=== PATIENT | male | born 1940 | race Caucasian/White ===

== ENCOUNTER 2018-10-18 14:31 | Inpatient (IN) ==
[2018-10-18] MEDS ORDERED: Ketorolac 30 MG/ML VIAL IVP ONE (15:09)
[2018-10-18] MEDS ORDERED: 0.9 % Sodium Chloride 500 ML IVC ONE (15:09)
[2018-10-18] MEDS ORDERED: Ondansetron ODT 4 MG TAB.RAPDIS SL STA (15:09)
--- NOTE | 2018-10-18 15:12 | Emergency Department Note ---
Disposition Clinical Impression: Supratherapeutic INR Pneumonia Qualifiers: Pneumonia type: due to unspecified organism Laterality: right Lung location: middle lobe of lung Qualified Code(s): J18.1 - Lobar pneumonia, unspecified organism Disposition: Home, Self-Care Condition: Fair General Adult HPI - General Chief complaint: ED General Medical Stated complaint: VOMITING AND DIARRHEA, BACK PAIN, LT LEG PAIN Time Seen by Provider: 10/18/18 14:45 Source: patient, EMS Mode of arrival: private vehicle Limitations: no limitations Nursing Notes Reviewed: Yes Vital Signs Reviewed: Yes - History of Present Illness HPI Narrative: Patient resents to the ED via EMS complaining of back pain, leg pain, nausea, vomiting and diarrhea. Symptoms began earlier today. He complains of sharp co nstant pain in the right side of his mid upper back that wraps around into the front of his chest. He rates it a 9-1/2 out of 10. He also complains of sharp pain in his left thigh that is intermittent that he rates a 5 1/2. Neither pain radiates. There is no numbness, tingling or weakness in his leg. No recent injury. He has been nauseous but has only been dry heaving without actually bringing up any emesis. He has had several loose watery stools today with no blood noted. He denies any abdominal pain. No urinary symptoms. No chest pain or shortness of breath. He has had subjective fever and chills. History is notable for A. fib, PE and DVT, COPD and hypertension. Versed 2 L of oxygen at home as needed for over the past 10 years due to his COPD. He also wears CPAP at night for sleep apnea. 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 He just saw his oncologist and had a treatment yesterday. He has a port in the right chest. He is on Coumadin for PE and DVT was diagnosed in 2017. He states he had similar pain in his leg when he had that blood clot. He last had his INR checked on 10/15 and states it was 2.8. Family states his doctor only wants his INR to be 2. He states he was told to "eat a salad". Pain Scale: 9 - Related Data Home Medications Medication Instructions Recorded Confirmed Tramadol HCl [Ultram] 50 mg PO TID PRN 11/25/17 10/18/18 Zolpidem [Ambien] 10 mg PO HS 11/25/17 10/18/18 Albuterol Sulfate [Albuterol 1 - 2 puff IH Q6HR PRN 05/20/18 10/18/18 Inhaler] Cyanocobalamin (B-12) [Vitamin B12] 1 ml IM QMONTH 05/20/18 10/18/18 Oxybutynin Chloride [Ditropan Xl] 5 mg PO BID 05/20/18 10/18/18 Potassium Chloride [Klor-Con] 20 meq PO BID 05/20/18 10/18/18 Ropinirole HCl [Requip] 2 mg PO HS 05/20/18 10/18/18 Warfarin [Coumadin] 5 mg PO AD 05/20/18 10/18/18 Cholecalciferol (Vitamin D3) 50,000 unit PO QWEEK 07/03/18 10/18/18 [Vitamin D] Furosemide [Lasix] 20 mg PO AD PRN 10/18/18 10/18/18 Previous Rx's Medication Instructions Recorded Polyethylene Glycol 3350 [MiraLAX] 17 gm PO DAILY PRN #1 bottle 08/08/18 Allergies Allergy/AdvReac Type Severity Reaction Status Date / Time latex Allergy Rash Verified 10/17/18 09:55 Constitutional: Reports: fever (subjective), chills. Denies: weakness, weight change Eyes: Denies: eye pain, eye discharge, vision change ENT ED: Denies: ear pain, throat pain, dental pain, hearing loss, epistaxis, congestion, dysphagia Cardiovascular: Denies: chest pain, palpitations, dyspnea on exertion, edema, syncope Respiratory: Denies: cough, dyspnea, wheezes, hemoptysis, stridor Gastrointestinal: Reports: nausea, vomiting, diarrhea. Denies: abdominal pain, constipation, hematemesis, melena, hematochezia Genitourinary: Denies: urgency, dysuria, frequency, hematuria Musculoskeletal: Reports: back pain (right mid back), arthralgia (L thigh). Denies: neck pain, myalgia Integumentary: Denies: rash, abrasion, lesions Neurological: Denies: headache, weakness, numbness, paresthesias, confusion, abnormal gait, vertigo Psychiatric: Denies: anxiety, depression, suicidal thoughts, homicidal thoughts, auditory hallucinations, visual hallucinations Endocrine: Denies: fatigue Hematological/Lymphatic: Denies: easy bleeding, easy bruising Allergic/Immunologic: Denies: facial swelling, urticaria Past Medical History - Past Medical History Medical history: Reports: arthritis, atrial fibrillation, cancer, COPD, DVT, hypertension, pulmonary embolus, other Surgical history: Reports: cholecystectomy, herniorrhaphy Psychiatric history: Reports: no psych history - Social History Smoking Status: Former smoker Smokeless Tobacco Status: No Alcohol use: Reports: none Drug use: Reports: none Physical Exam - General Limitations: no limitations General appearance: alert, in no apparent distress - Head Head exam: atraumatic, normocephalic, normal inspection - Eye Eye exam: Present: normal appearance, PERRL, EOMI - ENT ENT exam: normal exam, normal oropharynx, mucous membranes moist - Neck Neck exam: Present: normal inspection, full ROM, trachea midline - Chest Chest inspection: Present: normal inspection, symmetric chest wall rise. Absent: tenderness - Respiratory Respiratory exam: Present: normal lung sounds bilaterally - Cardiovascular Cardiovascular exam: Present: regular rate, normal rhythm, normal heart sounds - Abdominal Exam Abdominal exam: Present: soft, Non-Tender, normal bowel sounds. Absent: tenderness, distention, guarding, rebound, rigidity - Extremities Exam Extremities exam: Present: normal inspection, full ROM, normal capillary refill. Absent: tenderness, pedal edema - Expanded Lower Extremity Exam Hip/Pelvis exam: Present: normal inspection, full ROM Upper leg exam: Present: normal inspection, full ROM Knee exam: Present: normal inspection, full ROM Lower leg exam: Present: normal inspection, full ROM Ankle exam: Present: normal inspection, full ROM Foot/toe exam: Present: normal inspection, full ROM Neurovascular/Tendon exam: Absent: motor deficit, sensory deficit, tendon deficit - Back Exam Back exam: Present: normal inspection, full ROM. Absent: tenderness, CVA tenderness (R), CVA tenderness (L), paraspinal tenderness, vertebral tenderness - Neurological Exam Neurological exam: Present: alert, oriented X3 - Psychiatric Psychiatric exam: Present: normal affect, normal mood - Skin Skin exam: Present: warm, dry, intact, normal color Course Course Narrative: Patient presents to the ED complaining of right mid back pain, left thigh pain as well as nausea, vomiting and diarrhea. On arrival he does have a low-grade fever on this tachycardic. EKG showing A. fib which is known in this patient. He is on Coumadin but not on any antiarrhythmics. He is hemodynamically stable otherwise and not in any distress. He has no obvious physical findings or tenderness related to his right mid back pain or the left thigh. Oxygen saturations however in the lower 90s on his usual oxygen. Will check lab work including INR as well as chest x-ray for further evaluation of possibility of infection. Low suspicion for PE or DVT given that he is on Coumadin. - Reevaluation(s) Reevaluation #1: X-ray shows opacification right mid lung concerning for pneumonia. He has a leukocytosis with left shift. He is supratherapeutic with an INR of 4.5. He has chronic kidney disease. Urinalysis is negative for signs of infection. Lactic acid is normal. Will obtain blood cultures and start antibiotics for his pneumonia. Discussed with patient family the need for admission for further treatment and they are in agreement. I spoke to the hospitalist, Dr. Hernandez who has agreed to accept the patient. Vital Signs Temperature 100.4 F H 10/18/18 14:34 Pulse Rate 142 10/18/18 14:34 Respiratory Rate 20 10/18/18 14:34 Blood Pressure 132/96 10/18/18 14:34 O2 Sat by Pulse Oximetry 91 10/18/18 14:34 Temperature 99.0 F 10/18/18 19:42 Pulse Rate 105 10/18/18 19:42 Respiratory Rate 24 10/18/18 19:42 Blood Pressure 118/59 10/18/18 19:42 O2 Sat by Pulse Oximetry 95 10/18/18 19:42 Oxygen Delivery Oxygen Delivery Nasal Cannula Medical Decision Making - Medical Records Medical records reviewed: Yes I reviewed the patient's medical records. - Lab Data Lab results reviewed: Yes I reviewed the patient's lab results. Result diagrams: 10/18/18 15:21 10/18/18 15:21 Lab Results 10/18/18 10/18/18 10/18/18 Range/Units 15:21 15:21 15:21 WBC 15.9 H D (4.3-11.1) K/mcL RBC 3.96 L (4.19-5.50) M/mcL Hgb 11.9 L (12.9-16.9) g/dL Hct 36.5 L (37.5-50.1) % MCV 92.2 (83.0-100.0) fL MCH 30.1 (28.0-33.3) pg MCHC 32.6 (31.6-35.5) g/dL RDW 15.9 H (11.5-14.5) % Plt Count 183 (140-400) K/mcL MPV 10.1 (9.4-12.4) fL Immature Gran % 0.4 (0-4) % Seg Neutrophils % 92.1 % Lymphocytes % 3.1 % Monocytes % 4.2 % Eosinophils % 0.1 % Basophils % 0.1 % Neutrophils # 14.6 H (1.6-8.9) K/mcL Lymphocytes # 0.5 L (0.6-4.6) K/mcL Monocytes # 0.7 (0.0-1.3) K/mcL Eosinophils # 0.0 (0.0-0.6) K/mcL Basophils # 0.0 (0.0-0.2) K/mcL PT 51.0 H* (9.4-12.1) Seconds INR 4.5 H* Sodium 143 (136-145) mEq/L Potassium 3.5 (3.5-5.1) mEq/L Chloride 109 H (98-107) mEq/L Carbon Dioxide 24 (23-29) mEq/L BUN 17 (8-23) mg/dL Creatinine 1.82 H (0.70-1.30) mg/dL Est GFR ( Amer) 44 L (> 60) Est GFR (Non-Af Amer) 36 L (> 60) BUN/Creatinine Ratio 9 (6-26) Glucose 192 H (70-105) mg/dL Calculated Osmolality 303 H (280-300) Lactic Acid (0.5-2.2) mmol/L Calcium 6.8 L (8.6-10.3) mg/dL Total Bilirubin 0.4 (0.3-1.0) mg/dL Direct Bilirubin 0.1 (0.0-0.2) mg/dL Indirect Bilirubin 0.3 (0.0-1.2) mg/dL AST 10 L (13-39) Units/L ALT 11 (7-52) Units/L Alkaline Phosphatase 55 (34-104) Units/L Troponin I < 0.03 (< 0.04) ng/mL B-Natriuretic Peptide (Less than 100) pg/mL Serum Total Protein 6.4 (6.4-8.9) g/dL Albumin 4.0 (3.5-5.7) g/dL Globulin 2.4 (2.4-3.5) g/dL Albumin/Globulin Ratio 1.7 (1.1-2.2) Lipase 26 (11-82) Units/L Urine Color (Yellow) Urine Clarity (Clear) Urine pH (5.0-8.0) pH Units Ur Specific [place] (1.010-1.025) Urine Protein (Neg-Trace) mg/dL Urine Glucose (UA) (Normal) mg/dL Urine Ketones (Negative) mg/dL Urine Blood (Negative) Urine Nitrite (Negative) Urine Bilirubin (Negative) Urine Urobilinogen (Normal) mg/dL Ur Leukocyte Esterase (Negative) Urine Microscopic RBC (0-3) per hpf Urine Microscopic WBC (0-3) per hpf Ur Squamous Epith Cells (None-Few) per lpf Urine Bacteria (None-Few) per hpf Ur Culture Indicated? (NO) 10/18/18 10/18/18 10/18/18 Range/Units 15:21 15:45 17:18 WBC (4.3-11.1) K/mcL RBC (4.19-5.50) M/mcL Hgb (12.9-16.9) g/dL Hct (37.5-50.1) % MCV (83.0-100.0) fL MCH (28.0-33.3) pg MCHC (31.6-35.5) g/dL RDW (11.5-14.5) % Plt Count (140-400) K/mcL MPV (9.4-12.4) fL Immature Gran % (0-4) % Seg Neutrophils % % Lymphocytes % % Monocytes % % Eosinophils % % Basophils % % Neutrophils # (1.6-8.9) K/mcL Lymphocytes # (0.6-4.6) K/mcL Monocytes # (0.0-1.3) K/mcL Eosinophils # (0.0-0.6) K/mcL Basophils # (0.0-0.2) K/mcL PT (9.4-12.1) Seconds INR Sodium (136-145) mEq/L Potassium (3.5-5.1) mEq/L Chloride (98-107) mEq/L Carbon Dioxide (23-29) mEq/L BUN (8-23) mg/dL Creatinine (0.70-1.30) mg/dL Est GFR ( Amer) (> 60) Est GFR (Non-Af Amer) (> 60) BUN/Creatinine Ratio (6-26) Glucose (70-105) mg/dL Calculated Osmolality (280-300) Lactic Acid 1.6 (0.5-2.2) mmol/L Calcium (8.6-10.3) mg/dL Total Bilirubin (0.3-1.0) mg/dL Direct Bilirubin (0.0-0.2) mg/dL Indirect Bilirubin (0.0-1.2) mg/dL AST (13-39) Units/L ALT (7-52) Units/L Alkaline Phosphatase (34-104) Units/L Troponin I (< 0.04) ng/mL B-Natriuretic Peptide 190 H (Less than 100) pg/mL Serum Total Protein (6.4-8.9) g/dL Albumin (3.5-5.7) g/dL Globulin (2.4-3.5) g/dL Albumin/Globulin Ratio (1.1-2.2) Lipase (11-82) Units/L Urine Color Yellow (Yellow) Urine Clarity Clear (Clear) Urine pH 5.0 (5.0-8.0) pH Units Ur Specific [place] 1.020 (1.010-1.025) Urine Protein 30 H (Neg-Trace) mg/dL Urine Glucose (UA) Normal (Normal) mg/dL Urine Ketones Negative (Negative) mg/dL Urine Blood Trace-lysed H (Negative) Urine Nitrite Negative (Negative) Urine Bilirubin Negative (Negative) Urine Urobilinogen Normal (Normal) mg/dL Ur Leukocyte Esterase Negative (Negative) Urine Microscopic RBC 0-3 (0-3) per hpf Urine Microscopic WBC 0-3 (0-3) per hpf Ur Squamous Epith Cells Few (None-Few) per lpf Urine Bacteria Few (None-Few) per hpf Ur Culture Indicated? NO (NO) - Radiology Data Radiology results reviewed: Yes I reviewed the patient's radiology results. ITS Impressions Chest X-Ray 10/18/18 15:08 IMPRESSION: 1. Development of patchy opacification within the right mid lung. 2. Right chest port appears unchanged in position. D/ / Rakan Ward MD / Rakan Ward MD Interpreting Provider: Rakan Ward MD - EKG Data EKG #1 EKG attestation: Yes I reviewed and interpreted this EKG. Rate: tachycardia Rhythm: A.Fib [place]/QRS: normal Interpretation: unchanged when compared to prior tracing (date) (09/29/18)
[2018-10-18 15:36] LABS: Basophils % 0.1 %; Eosinophils % 0.1 %; Hematocrit 36.5 % (37.5-50.1); Hemoglobin 11.9 g/dL (12.9-16.9); Immature Granulocytes % 0.4 % (0-4); Lymphocytes # 0.5 K/mcL (0.6-4.6); Lymphocytes % 3.1 %; Mean Corpuscular HGB Conc 32.6 g/dL (31.6-35.5); Mean Corpuscular Hemoglobin 30.1 pg (28.0-33.3); Mean Corpuscular Volume 92.2 fL (83.0-100.0); Mean Platelet Volume 10.1 fL (9.4-12.4); Monocytes # 0.7 K/mcL (0.0-1.3); Monocytes % 4.2 %; Neutrophils # 14.6 K/mcL (1.6-8.9); Platelet Count 183 K/mcL (140-400); Red Blood Count 3.96 M/mcL (4.19-5.50); Red Cell Distribution Width 15.9 % (11.5-14.5); Segmented Neutrophils % 92.1 %
[2018-10-18 15:41] LABS: INR 4.5
[2018-10-18 15:46] LABS: Troponin I < 0.03 ng/mL (< 0.04)
[2018-10-18 15:47] LABS: Alanine Aminotransferase 11 Units/L (7-52); Albumin/Globulin Ratio 1.7 (1.1-2.2); Alkaline Phosphatase 55 Units/L (34-104); Aspartate Amino Transferase 10 Units/L (13-39); BUN/Creatinine Ratio 9 (6-26); Bilirubin,Direct 0.1 mg/dL (0.0-0.2); Bilirubin,Indirect 0.3 mg/dL (0.0-1.2); Bilirubin,Total 0.4 mg/dL (0.3-1.0); Blood Urea Nitrogen 17 mg/dL (8-23); Calcium 6.8 mg/dL (8.6-10.3); Carbon Dioxide 24 mEq/L (23-29); Chloride 109 mEq/L (98-107); Globulin 2.4 g/dL (2.4-3.5); Glucose 192 mg/dL (70-105); Lipase 26 Units/L (11-82); Osmolality,Calculated 303 (280-300); Potassium 3.5 mEq/L (3.5-5.1); Sodium 143 mEq/L (136-145); Total Protein 6.4 g/dL (6.4-8.9); eGFR For Non-African Americans 36 (> 60)
[2018-10-18 15:50] LABS: Bilirubin,Urine Negative (Negative); Blood,Urine Trace-lysed (Negative); Clarity,Urine Clear (Clear); Color,Urine Yellow (Yellow); Glucose,Urine (UA) Normal (Normal); Ketones,Urine Negative (Negative); Leukocyte Esterase,Urine Negative (Negative); Nitrite,Urine Negative (Negative); Protein,Urine 30 mg/dL (Neg-Trace); Urobilinogen,Urine Normal (Normal)
[2018-10-18 15:59] LABS: Bacteria,Urine Few per hpf (None-Few); RBC,Urine 0-3 per hpf (0-3); Squamous Epithelial Cell,Urine Few per lpf (None-Few); WBC,Urine 0-3 per hpf (0-3)
[2018-10-18] MEDS ORDERED: Azithromycin 500 MG in D5% in Water 250 ML IVPB ONE (17:02)
[2018-10-18] MEDS ORDERED: cefTRIAXone 2,000 MG in Water for inj. (sterile) 20 ML 20 ML IVP ONE (17:02)
[2018-10-18] MEDS ORDERED: Naloxone 0.4 MG/ML INJ IVP PRN ×2 (17:36→18:21)
[2018-10-18] MEDS ORDERED: D5% in Water 1,000 ML IVC PRN ×2 (17:42→18:21)
[2018-10-18] MEDS ORDERED: Dextrose Gel 15 GM/37.5 ML TUBE PO PRN ×4 (17:42→18:21)
[2018-10-18] MEDS ORDERED: *HR* Dextrose 50 % in Water (Vial) 50 ML VIAL IVP PRN ×2 (17:42→18:21)
[2018-10-18] MEDS ORDERED: traMADol 50 MG TABLET PO PRN (18:21)
[2018-10-18] MEDS: Furosemide 20 MG TABLET PO SCH (20:45)
[2018-10-18] MEDS: rOPINIRole 1 MG TABLET PO SCH (20:51)
[2018-10-18] MEDS: Insulin LISPRO 300 UNITS/3 ML VIAL SQ SCH (20:52)
[2018-10-18] MEDS ORDERED: Insulin LISPRO 300 UNITS/3 ML VIAL SQ SCH (21:00)
[2018-10-19 06:39] LABS: Basophils % 0.1 %; Eosinophils % 0.1 %; Hematocrit 32.8 % (37.5-50.1); Hemoglobin 10.8 g/dL (12.9-16.9); Immature Granulocytes % 1.4 % (0-4); Lymphocytes # 0.9 K/mcL (0.6-4.6); Lymphocytes % 4.8 %; Mean Corpuscular HGB Conc 32.9 g/dL (31.6-35.5); Mean Corpuscular Hemoglobin 30.3 pg (28.0-33.3); Mean Corpuscular Volume 91.9 fL (83.0-100.0); Monocytes % 5.3 %; Platelet Count 133 K/mcL (140-400); Red Blood Count 3.57 M/mcL (4.19-5.50); Red Cell Distribution Width 16.1 % (11.5-14.5); Segmented Neutrophils % 88.3 %
[2018-10-19 07:24] LABS: Neutrophils # 16.3 K/mcL (1.6-8.9)
[2018-10-19] MEDS ORDERED: Insulin LISPRO 300 UNITS/3 ML VIAL SQ SCH (07:30)
[2018-10-19 07:33] LABS: Calcium 6.1 mg/dL (8.6-10.3); Potassium 3.6 mEq/L (3.5-5.1)
[2018-10-19 07:57] LABS: INR 6.7; Prothrombin Time 75.1 Seconds (9.4-12.1)
[2018-10-19] MEDS: Insulin LISPRO 300 UNITS/3 ML VIAL SQ SCH ×4 (08:02→22:45)
[2018-10-19] MEDS: Furosemide 20 MG TABLET PO SCH (08:13)
[2018-10-19] MEDS ORDERED: Cyanocobalamin (B-12) 1,000 MCG/ML VIAL IM SCH (09:00)
--- NOTE | 2018-10-19 09:26 | Internal Med History&Physical ---
Date of Encounter: 10/19/18 Time of Encounter: 08:50 Assessment and Plan (1) Pneumonia Current visit: Yes Status: Acute He was given Rocephin and Zithromax in emergency room. These will be continued with lactobacillus. Qualifiers: Pneumonia type: due to unspecified organism Laterality: right Lung location: middle lobe of lung Qualified Code(s): J18.1 - Lobar pneumonia, unspecified organism (2) Anemia Current visit: Yes Status: Acute Anemia testing 05/20/2018 showed no fracture deficiency. Qualifiers: Anemia type: due to chronic kidney disease Chronic kidney disease stage: stage 3 (moderate) Qualified Code(s): N18.3 - Chronic kidney disease, stage 3 (moderate); D63.1 - Anemia in chronic kidney disease (3) Supratherapeutic INR Current visit: Yes Status: Acute Hold Coumadin and monitor INR. (4) CKD (chronic kidney disease) Current visit: No Status: Acute Monitor renal indices. Qualifiers: Chronic kidney disease stage: stage 3 (moderate) Qualified Code(s): N18.3 - Chronic kidney disease, stage 3 (moderate) (5) [place] light chain myeloma Current visit: No Status: Acute As per oncologist. (6) Atrial fibrillation Current visit: Yes Status: Acute Hold Coumadin due to elevated INR. Qualifiers: Atrial fibrillation type: chronic Qualified Code(s): I48.2 - Chronic atrial fibrillation (7) ANGELICA (obstructive sleep apnea) Current visit: Yes Status: Chronic Continue BiPAP at bedtime and when necessary during day time. (8) Hyperglycemia Current visit: Yes Status: Acute Check hemoglobin A1c in a.m. (9) Restless leg syndrome Current visit: Yes Status: Acute Continue Requip. Check ferritin level in a.m. Internal Medicine - H&P: HPI Chief complaint: Vomiting, diarrhea, cough Admitted From: Emergency Dept Plans for Post Hospital Care: Home History of present illness: Mr. Orellana is a 78 year old male who came to emergency room stating he had onset of nonbloody vomiting and diarrhea with minimally productive cough earlier the day of admission. He reports approximately 5 episodes of vomiting and diarrhea. He has back pain but no significant abdominal pain. He came to emergency room and was evaluated and found to have evidence of right mid lung pneumonia. He was admitted to [facility] floor for ongoing care needs. He reports several previous episodes of pneumonia. He states his oldest daughter has had recent respiratory infection symptoms. His respiratory history is significant for having smoked from approximately age [age] up to 2 packs per day. He has a diagnosis of COPD and uses oxygen at bedtime and when necessary during the daytime. He has ANGELICA and uses CPAP at at bedtime. GI history is significant for remote cholecystectomy. He had Zoë-en-Y gastric bypass surgery 2001. He denies disorders of his liver or exocrine pancreas. Past Med Surg Social Fam HX - Past Medical History Medical history: arthritis, atrial fibrillation, cancer, COPD, DVT, hypertension, pulmonary embolus, other Additional medical history: kidney CA Psychiatric history: no psych history - Past Surgical History Surgical History: cholecystectomy, herniorrhaphy Additional surgical history: prostate operation x 2 - Social History Smoking Status: Former smoker Smokeless Tobacco Status: No Alcohol use: none Drug use: none - Family History Father Living Status: Age at : 93 Cause of : Prostate CA Hx Family Cardiac Disorders: No Hx Family Respiratory Disorders: No Hx Family Cancer: Yes (Prostate, mets to spine and brain) Hx Family GI Disorders: No Hx Family Genitourinary Disorders: No Hx Family Endocrine Disorder: No Hx Family Musculoskeletal Disorders: No Hx Family Neuromuscular Disorders: No Internal Medicine - H&P: Meds Tramadol HCl [Ultram] 50 mg PO TID PRN 11/25/17 [History] Zolpidem [Ambien] 10 mg PO HS 11/25/17 [History] Albuterol Sulfate [Albuterol Inhaler] 1 - 2 puff IH Q6HR PRN 05/20/18 [History] Cyanocobalamin (B-12) [Vitamin B12] 1 ml IM QMONTH 05/20/18 [History] Oxybutynin Chloride [Ditropan Xl] 5 mg PO BID 05/20/18 [History] Potassium Chloride [Klor-Con] 20 meq PO BID 05/20/18 [History] Ropinirole HCl [Requip] 2 mg PO HS 05/20/18 [History] Warfarin [Coumadin] 5 mg PO AD 05/20/18 [History] Cholecalciferol (Vitamin D3) [Vitamin D] 50,000 unit PO QWEEK 07/03/18 [History] Polyethylene Glycol 3350 [MiraLAX] 17 gm PO DAILY PRN #1 bottle 08/08/18 [Rx] Furosemide [Lasix] 20 mg PO AD PRN 10/18/18 [History] Allergy/AdvReac Type Severity Reaction Status Date / Time latex Allergy Rash Verified 10/17/18 09:55 All Systems PM: A 10-system review of systems was performed and is negative for pertinent findings except as documented above in the HPI. Review of systems: Gen.: He states his weight has increased approximately 20 pounds in the past year Cardiovascular: He has history of hypertension but does not take antihypertension medication at this time. He has history of heart failure/edema and takes Lasix daily. He had DVT/pulmonary embolus last year and is now on Coumadin. He has chronic atrial fibrillation. He denies NH. Respiratory: As per history of present illness GI: As per history of present illness : He has BPH and has had TUR 2 in the past. He has overactive bladder and chronic kidney disease stage III. He follows with a [facility]. Neurologic: He denies large distribution strokes or seizures. 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 He has anemia with history of B12 deficiency. He denies other blood disorders or internal malignancies Psychiatric: He denies anxiety depression or other mental health issues [place] skeletal: He has DJD and restless leg syndrome. He denies gout or other bone joint or muscle disorders. - Constitutional Vitals: Temp Pulse Resp BP Pulse Ox 98.7 F 97 16 101/67 97 10/19/18 07:05 10/19/18 08:11 10/19/18 07:05 10/19/18 08:11 10/19/18 07:05 Exam: Gen.: He is a well-developed overweight male lying in bed who appears in no acute distress HEENT: Head is atraumatic and normocephalic. Eyes: EOMI. There is no scleral icterus. Mouth: Mucosa is moist. Neck: Supple and nontender. There is no thyromegaly or adenopathy noted. Heart: Irregularly irregular without murmurs or gallops Lungs: No wheezes or crackles are heard. Abdomen: Soft and nontender. No masses or guarding are noted. Extremities: There is no cyanosis edema or clubbing noted. Dorsalis pedis and posttibial pulses are 1-2 over 2 bilaterally. Neurologic: Mental status: He is talkative and a good historian. Cranial nerves: Smile is symmetric. Forehead wrinkles bilaterally. Tongue protrudes midline. EOMI. Motor: There is no pronator drift. Cerebellar: Fair to nose is intact bilaterally. Skin: Warm and dry Internal Med - H&P Results - Labs CBC & Chem 7: 10/19/18 05:24 10/19/18 05:24 Labs: Short CBC 10/18/18 10/19/18 Range/Units 15:21 05:24 WBC 15.9 H D 18.4 H (4.3-11.1) K/mcL Hgb 11.9 L 10.8 L (12.9-16.9) g/dL Hct 36.5 L 32.8 L (37.5-50.1) % Plt Count 183 133 L (140-400) K/mcL Neutrophils # 14.6 H 16.3 H (1.6-8.9) K/mcL BMP 10/18/18 10/19/18 15:21 05:24 Sodium 143 140 Potassium 3.5 3.6 Chloride 109 H 108 H Carbon Dioxide 24 23 BUN 17 21 Creatinine 1.82 H 1.99 H Glucose 192 H 121 H Calcium 6.8 L 6.1 L Cardiac Enzymes 10/18/18 Range/Units 15:21 Troponin I < 0.03 (< 0.04) ng/mL Liver Function 10/18/18 Range/Units 15:21 Total Bilirubin 0.4 (0.3-1.0) mg/dL Direct Bilirubin 0.1 (0.0-0.2) mg/dL AST 10 L (13-39) Units/L ALT 11 (7-52) Units/L Alkaline Phosphatase 55 (34-104) Units/L Albumin 4.0 (3.5-5.7) g/dL Urine 10/18/18 Range/Units 15:45 Urine Color Yellow (Yellow) Urine Clarity Clear (Clear) Urine pH 5.0 (5.0-8.0) pH Units Ur Specific [place] 1.020 (1.010-1.025) Urine Protein 30 H (Neg-Trace) mg/dL Urine Glucose (UA) Normal (Normal) mg/dL - Impressions ITS Impressions Chest X-Ray 10/18/18 15:08 IMPRESSION: 1. Development of patchy opacification within the right mid lung. 2. Right chest port appears unchanged in position. D/ / Rakan Ward MD / Rakan Ward MD Interpreting Provider: Rakan Ward MD - VTE Reasons for not Prescribing Prophylaxis: Not indicated-Anticoagulated or INR therapeutic
[2018-10-19] MEDS: traMADol 50 MG TABLET PO PRN ×3 (11:37→22:45)
[2018-10-19] MEDS: cefTRIAXone 1,000 MG in Water for inj. (sterile) 20 ML 10 ML IVP SCH (16:30)
[2018-10-19] MEDS: Azithromycin 500 MG in D5% in Water 250 ML IVPB SCH (16:31)
[2018-10-19] MEDS: Lactobacillus 1 EACH CAP.SPRINK PO SCH (22:45)
[2018-10-19] MEDS: rOPINIRole 1 MG TABLET PO SCH (22:45)
[2018-10-20 07:32] LABS: INR 5.6; Prothrombin Time 62.7 Seconds (9.4-12.1)
[2018-10-20] MEDS: Insulin LISPRO 300 UNITS/3 ML VIAL SQ SCH ×4 (08:08→20:49)
[2018-10-20] MEDS: Lactobacillus 1 EACH CAP.SPRINK PO SCH ×2 (08:30→20:47)
[2018-10-20] MEDS: Furosemide 20 MG TABLET PO SCH (08:30)
[2018-10-20] MEDS: Cholecalciferol (D-3) 1,000 UNIT TABLET PO SCH (08:30)
[2018-10-20] MEDS: traMADol 50 MG TABLET PO PRN ×2 (08:31→20:47)
[2018-10-20 09:29] LABS: % Iron Saturation 6 % (20-55); Iron 23 mcg/dL (65-175); Transferrin 262 mg/dL (203-362)
[2018-10-20 09:48] LABS: Ferritin 137 ng/mL (20-250)
--- NOTE | 2018-10-20 10:43 | Internal Med Progress Note ---
Date of Encounter: 10/20/18 Time of Encounter: 10:35 - Assessment and plan (1) Pneumonia Current Visit: Yes Status: Acute Assessment and plan: October 20. Continue Rocephin and Zithromax with lactobacillus. Qualifiers: Pneumonia type: due to unspecified organism Laterality: right Lung location: middle lobe of lung Qualified Code(s): J18.1 - Lobar pneumonia, unspecified organism (2) Anemia Current Visit: Yes Status: Acute Assessment and plan: October 20. Anemia testing today shows iron 23, transferrin saturation 6%, tr ansferrin 262, ferritin 137, and B12 > 1500. He will start oral ferrous sulfate with ascorbic acid tomorrow. Qualifiers: Anemia type: due to chronic kidney disease Chronic kidney disease stage: stage 3 (moderate) Qualified Code(s): N18.3 - Chronic kidney disease, stage 3 (moderate); D63.1 - Anemia in chronic kidney disease (3) Supratherapeutic INR Current Visit: Yes Status: Acute Assessment and plan: October 20. INR has decreased to 5.6. Continue to withhold Coumadin and monitor labs. (4) CKD (chronic kidney disease) Current Visit: No Status: Acute Assessment and plan: October 20. Monitor renal indices. Qualifiers: Chronic kidney disease stage: stage 3 (moderate) Qualified Code(s): N18.3 - Chronic kidney disease, stage 3 (moderate) (5) [place] light chain myeloma Current Visit: No Status: Acute Assessment and plan: October 20. As per oncologist. (6) Atrial fibrillation Current Visit: Yes Status: Acute Assessment and plan: October 20. Hold Coumadin due to elevated INR. Qualifiers: Atrial fibrillation type: chronic Qualified Code(s): I48.2 - Chronic atrial fibrillation (7) ANGELICA (obstructive sleep apnea) Current Visit: Yes Status: Chronic Assessment and plan: October 20. Continue BiPAP at bedtime and when necessary during daytime (8) Hyperglycemia Current Visit: Yes Status: Acute Assessment and plan: October 20. Hemoglobin A1c pending. (9) Restless leg syndrome Current Visit: Yes Status: Acute Assessment and plan: October 20. Continue Requip and start oral ferrous sulfate with ascorbic acid. - Subjective Interval history: October 20. He has no new complaints and feels better. - Constitutional Vitals: Temp Pulse Resp BP Pulse Ox 98.4 F 94 16 118/82 92 10/20/18 06:25 10/20/18 06:25 10/20/18 06:25 10/20/18 06:25 10/20/18 06:25 Exam: He is resting comfortably in bed and appears in no acute distress. His affect is bright and cheerful. I reviewed his medications and lab results. Internal Medicine: Result - Labs CBC & Chem 7: 10/19/18 05:24 10/19/18 05:24 - ABG Interpretation ABG results: PT/INR, D-dimer PT 62.7 Seconds (9.4-12.1) H* 10/20/18 06:45 - VTE Reasons for not Prescribing Prophylaxis: Not indicated-Anticoagulated or INR therapeutic Consult Discharge Plan - Plan Referrals: Sona Eden MD [Primary Care Provider] - 1 week
[2018-10-20] MEDS: Azithromycin 500 MG in D5% in Water 250 ML IVPB SCH (16:47)
[2018-10-20] MEDS: cefTRIAXone 1,000 MG in Water for inj. (sterile) 20 ML 10 ML IVP SCH (16:47)
[2018-10-20] MEDS: rOPINIRole 1 MG TABLET PO SCH (20:47)
[2018-10-21 05:15] LABS: Eosinophils # 0.1 K/mcL (0.0-0.6); Eosinophils % 0.7 %; Hematocrit 30.8 % (37.5-50.1); Hemoglobin 10.3 g/dL (12.9-16.9); Immature Granulocytes % 0.3 % (0-4); Lymphocytes # 0.7 K/mcL (0.6-4.6); Lymphocytes % 9.4 %; Mean Corpuscular HGB Conc 33.4 g/dL (31.6-35.5); Mean Corpuscular Hemoglobin 30.2 pg (28.0-33.3); Mean Corpuscular Volume 90.3 fL (83.0-100.0); Mean Platelet Volume 10.8 fL (9.4-12.4); Monocytes # 0.6 K/mcL (0.0-1.3); Monocytes % 7.8 %; Neutrophils # 6.3 K/mcL (1.6-8.9); Platelet Count 117 K/mcL (140-400); Red Blood Count 3.41 M/mcL (4.19-5.50); Red Cell Distribution Width 15.6 % (11.5-14.5); Segmented Neutrophils % 81.8 %
[2018-10-21 05:37] LABS: INR 3.1; Prothrombin Time 35.1 Seconds (9.4-12.1)
[2018-10-21 05:48] LABS: Calcium 6.2 mg/dL (8.6-10.3); Potassium 3.6 mEq/L (3.5-5.1)
[2018-10-21 06:15] LABS: Estimated Average Glucose 146 mg/dl; Hemoglobin A1C 6.7 %
[2018-10-21] MEDS ORDERED: Ascorbic Acid 500 MG TABLET PO SCH (06:30)
[2018-10-21] MEDS: Insulin LISPRO 300 UNITS/3 ML VIAL SQ SCH (08:16)
[2018-10-21 08:19] VITALS: BP 117/76
[2018-10-21] MEDS: Furosemide 20 MG TABLET PO SCH (08:20)
[2018-10-21] MEDS: Lactobacillus 1 EACH CAP.SPRINK PO SCH (08:21)
[2018-10-21] MEDS: Cholecalciferol (D-3) 1,000 UNIT TABLET PO SCH (08:21)
--- NOTE | 2018-10-21 09:38 | Discharge Summary ---
Orders not resulted at time of discharge: Pending orders 10/18/18 15:08 ECG 12 lead ECG [ECG] Stat 10/18/18 17:18 Culture,Blood [BC] Stat Date of Encounter: 10/21/18 Time of Encounter: 09:30 - Discharge Diagnosis (1) Pneumonia Priority: Primary Status: Acute Qualifiers: Pneumonia type: due to unspecified organism Laterality: right Lung location: middle lobe of lung Qualified Code(s): J18.1 - Lobar pneumonia, unspecified organism (2) Anemia Priority: Secondary Status: Acute Qualifiers: Anemia type: due to chronic kidney disease Chronic kidney disease stage: stage 3 (moderate) Qualified Code(s): N18.3 - Chronic kidney disease, stage 3 (moderate); D63.1 - Anemia in chronic kidney disease (3) Supratherapeutic INR Priority: Secondary Status: Acute (4) CKD (chronic kidney disease) Priority: Secondary Status: Chronic Qualifiers: Chronic kidney disease stage: stage 3 (moderate) Qualified Code(s): N18.3 - Chronic kidney disease, stage 3 (moderate) (5) [place]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 Priority: Secondary Status: Chronic (6) Atrial fibrillation Priority: Secondary Status: Chronic Qualifiers: Atrial fibrillation type: chronic Qualified Code(s): I48.2 - Chronic atrial fibrillation (7) ANGELICA (obstructive sleep apnea) Priority: Secondary Status: Chronic (8) Restless leg syndrome Priority: Secondary Status: Acute (9) DM type 2 (diabetes mellitus, type 2) Priority: Secondary Status: Acute Qualifiers: Diabetes mellitus group home insulin use: without group home use Diabetes mellitus complication detail: with chronic kidney disease Chronic kidney disease stage: stage 3 (moderate) Qualified Code(s): E11.22 - Type 2 diabetes mellitus with diabetic chronic kidney disease; N18.3 - Chronic kidney disease, stage 3 (moderate) Hospital course: Mr. Orellana is a 78 year old male who came to emergency room stating he had onset of nonbloody vomiting and diarrhea with minimally productive cough earlier the day of admission. He reports approximately 5 episodes of vomiting and diarrhea. He has back pain but no significant abdominal pain. He came to emergency room and was evaluated and found to have evidence of right mid lung pneumonia. He was admitted to [facility] floor for ongoing care needs. Initial orders were written by the emergency room physician. I saw him on October 19 and performed a history and physical. He was started empirically on Rocephin and Zithromax in emergency room. Lactobacillus was added. He had good clinical response with WBC normalizing to 7.7 and significant decrease in left shift on differential by day of discharge. He remained afebrile after the first hospital day. He will continue with oral antibiotic and probiotic for 3 additional days at discharge. Coumadin was held and INR decreased to 3.1 by day of discharge. He will resume Coumadin at discharge and his PCP can monitor INR. Anemia testing showed iron 23, transferrin saturation 6%, transferrin 262, ferritin 137, and B12 > 1500. He was started on ferrous sulfate with ascorbic acid. His PCP can determine if B12 dosage should be reduced. Hemoglobin A1c returned at 6.7% consistent with DM 2 diet controlled. His PCP can monitor. There were no new problems and on October 21 he felt improved and stable for [facility]. He will follow with his PCP within 1 week. He will continue CPAP and oxygen use as at home. - Time Spent with Patient Total time spent providing and/or coordinating discharge services: - Discharge Medications Prescriptions: New Cefuroxime PO [Ceftin] 500 mg PO Q12HR #6 tablet Ascorbic Acid [Vitamin C] 500 mg PO 0630 #30 tablet Azithromycin [Zithromax] 250 mg PO DAILY #3 tablet Ferrous Sulfate 325 mg PO 0630 #30 tablet Lactobacillus [Culturelle] 1 each PO BID #6 cap.sprink Continue Cyanocobalamin (B-12) [Vitamin B12] 1 ml IM QMONTH Warfarin [Coumadin] 5 mg PO AD Potassium Chloride [Klor-Con] 20 meq PO BID Ropinirole HCl [Requip] 2 mg PO HS Albuterol Sulfate [Albuterol Inhaler] 1 - 2 puff IH Q6HR PRN PRN Reason: Shortness Of Breath Oxybutynin Chloride [Ditropan Xl] 5 mg PO BID Cholecalciferol (Vitamin D3) [Vitamin D3] 50,000 unit PO QWEEK Polyethylene Glycol 3350 [MiraLAX] 17 gm PO DAILY PRN #1 bottle PRN Reason: Constipation Zolpidem [Ambien] 10 mg PO HS Tramadol HCl [Ultram] 50 mg PO TID PRN PRN Reason: Pain Furosemide [Lasix] 20 mg PO AD PRN PRN Reason: Edema Home Medications: Tramadol HCl [Ultram] 50 mg PO TID PRN 11/25/17 [History] Zolpidem [Ambien] 10 mg PO HS 11/25/17 [History] Albuterol Sulfate [Albuterol Inhaler] 1 - 2 puff IH Q6HR PRN 05/20/18 [History] Cyanocobalamin (B-12) [Vitamin B12] 1 ml IM QMONTH 05/20/18 [History] Oxybutynin Chloride [Ditropan Xl] 5 mg PO BID 05/20/18 [History] Potassium Chloride [Klor-Con] 20 meq PO BID 05/20/18 [History] Ropinirole HCl [Requip] 2 mg PO HS 05/20/18 [History] Warfarin [Coumadin] 5 mg PO AD 05/20/18 [History] Cholecalciferol (Vitamin D3) [Vitamin D3] 50,000 unit PO QWEEK 07/03/18 [History] Polyethylene Glycol 3350 [MiraLAX] 17 gm PO DAILY PRN #1 bottle 08/08/18 [Rx] Furosemide [Lasix] 20 mg PO AD PRN 10/18/18 [History] Ascorbic Acid [Vitamin C] 500 mg PO 0630 #30 tablet 10/21/18 [Rx] Azithromycin [Zithromax] 250 mg PO DAILY #3 tablet 10/21/18 [Rx] Cefuroxime PO [Ceftin] 500 mg PO Q12HR #6 tablet 10/21/18 [Rx] Ferrous Sulfate 325 mg PO 0630 #30 tablet 10/21/18 [Rx] Lactobacillus [Culturelle] 1 each PO BID #6 cap.sprink 10/21/18 [Rx] Allergies/Adverse Reactions: Allergy/AdvReac Type Severity Reaction Status Date / Time latex Allergy Rash Verified 10/17/18 09:55 Date of admission: 10/19/18 09:42 Primary care physician: Sona Eden - Constitutional Vitals: Temp Pulse Resp BP Pulse Ox 97.7 F 98 16 117/76 97 10/21/18 08:18 10/21/18 08:18 10/21/18 08:18 10/21/18 08:18 10/21/18 08:18 - Patient Status Disposition: Home, Self-Care Condition: Fair - Discharge Instructions Follow Up With: Sona Eden MD [Primary Care Provider] - 1 week - Diet and Activity Activity: resume usual activities as tolerated Diet: advance to your usual diet - VTE Reasons for not Prescribing Prophylaxis: Not indicated-Anticoagulated or INR therapeutic
--- NOTE | 2018-10-21 16:44 | Electrocardiograph Report ---
[place] [id number] Test Date: 2018-10-18 Pat Name: Dick Orellana Department: EDP-12 Room: [facility] Gender: M [employer]: : 1940 Requested By: Gayle Laird Order Number: [id number] Reading MD: Ghada Martinez Measurements Intervals [place] Rate: 128 P: NE: QRS: 37 QRSD: 98 T: 9 QT: 286 QTc: 418 Interpretive Statements Atrial fibrillation Nonspecific repol abnormality, anterior leads Electronically Signed On 10-21-2018 16:42:39 EDT by Ghada Martinez
== END 2018-10-21 11:45 | disposition home or self-care (01) | DRG 194 ==
LOC: EMEROOPIK 14:31 → INPPIK 14:31
PROVIDERS: ADMIT Internal Medicine; ATTEND Internal Medicine